=== PATIENT | female | born 1990 | race Caucasian/White ===

== ENCOUNTER 2017-03-12 13:58 | Emergency (ER) | payer MEDICAID ==
[~2017-03-12] VITALS: Ht 154.9 cm; Wt 65.3 kg
[2017-03-12 14:16] VITALS: BP 129/69
--- NOTE | 2017-03-12 15:55 | NUR ---
PATIENT PRESENTS TO ED WITH crush injury with door at home--x 2 days ago right 1st digit discoloration, swelling, tender, decreased rom hx---denies rx---none . DENIES N/V/D; SKIN IS PINK/WARM/DRY; AAOX4 WITH EVEN AND STEADY GAIT; LUNGS CLEAR BL; HR EVEN AND REGULAR; PT DENIES ANY FEVER, CP, SOB, OR COUGH AT THIS TIME; PATIENT STATES PAIN OF 8/10 AT THIS TIME; VSS; PATIENT POSITIONED FOR COMFORT; ER MD MADE AWARE OF PT STATUS.
[2017-03-12 16:56] VITALS: BP 126/79
--- NOTE | 2017-03-12 16:56 | NUR ---
Patient discharged with v/s stable. Written and verbal after care instructions given and explained. Patient verbalized understanding. Ambulatory with steady gait. All questions addressed prior to discharge. Advised to follow up with PMD.
== END 2017-03-12 16:56 | disposition home or self-care (01) ==
LOC: MED 13:58
DX: S60.111A Contusion of right thumb with damage to nail, initial encounter (principal); W23.0XXA Caught, crushed, jammed, or pinched between moving objects, initial encounter; Y93.89 Activity, other specified; Y92.89 Other specified places as the place of occurrence of the external cause; Y99.8 Other external cause status
CPT/HCPCS: 11740; 73130; 99284